=== PATIENT | male | born 1955 | race Asian ===

== ENCOUNTER 2016-04-30 12:50 | Day surgery (SDC) | payer OTHER ==
[~2016-04-30] VITALS: Ht 172.7 cm; Wt 69.8 kg
[2016-04-30 13:35] VITALS: Ht 172.7 cm; Wt 69.8 kg
[2016-04-30 13:46] LABS: POTASSIUM 5.6 mmol/L (3.5-5.1)
[2016-04-30] MEDS ORDERED: AMLO-147 PO (13:53)
[2016-04-30] MEDS ORDERED: [UNRECOGNIZED DRUG - CODE] PO (13:53)
[2016-04-30] MEDS ORDERED: CALC667C PO (13:53)
[2016-04-30] MEDS ORDERED: HYDR-3670 PO (13:53)
[2016-04-30] MEDS ORDERED: LOSA1TAB20 PO (13:53)
[2016-04-30] MEDS ORDERED: METO100T13 PO (13:53)
[2016-04-30] MEDS ORDERED: ATOR20TA38 PO (13:53)
[2016-04-30] MEDS ORDERED: NOVO7030 SC (13:53)
[2016-04-30 14:30] VITALS: BP 181/77; PULSE 50; RESP 20
[2016-04-30] MEDS ORDERED: PROPOFOL 40 ML ONE (14:53)
[2016-04-30] MEDS ORDERED: LIDOCAINE 100 MG SYRINGE ONE (14:53)
[2016-04-30] MEDS ORDERED: FENTAnyl 50 MCG/ML VIAL ONE (14:53)
[2016-04-30 15:12] VITALS: BP 127/65; PULSE 62; RESP 21
[2016-04-30 15:45] VITALS: BP 156/76; PULSE 65; RESP 16
--- NOTE | 2016-04-30 23:13 | GILP ---
DATE OF PROCEDURE: NAME OF PROCEDURE: Colonoscopy to cecum. SURGEON: Melida Sorensen MD HISTORY AND INDICATIONS: The patient here for colorectal cancer screening. PREMEDICATION: Monitored anesthesia care by anesthesiologist. INSTRUMENT USED: Olympus colonoscope. PREPARATION: Adequate. TECHNIQUE: After informed consent, with the patient/relatives understanding the procedure, its indic ations potential risks and complications, including but not limited to: allergic reaction, bleeding, perforation, infection, missed lesions, and, after all pertinent questions were answered to the pat ient's satisfaction, the patient/relatives signed the witnessed informed consent. Following this, premedication was administered slowly IV push by under careful cardiovascular and re spiratory monitoring with pulse oximetry, automatic blood pressure and loss control engineer. Once the sedati ve effect was achieved, the patient was placed in the left lateral decubitus position, digital recta l examination was performed. The colonoscope was then introduced and advanced under visual control throughout all segments of the colon including: the rectum, sigmoid, descending colon, splenic flexu re, transverse colon, hepatic flexure, ascending colon and finally reaching the cecum which was preet rly identified by transillumination, finger indentation and the ileocecal valve. Careful examinatio n of the mucosa of the lower gastrointestinal tract both on insertion as well as withdrawal of the i nstrument disclosed the following findings: Rectal Examination: No evidence of perirectal disease, no masses. Colonic Mucosa: The colon mucosa was entirely unremarkable throughout. The ileocecal valve was jonny monisha identified and appears unremarkable. The instrument was withdrawn reexamining the mucosa in de tail. No additional abnormalities are noted with exception of moderate sized internal hemorrhoids. The instrument was then withdrawn, the patient tolerated the procedure well and was transferred out of the [facility]oscopy Suite awake and in good condition to continue recovery under observation. IMPRESSION: 1. Moderate sized internal hemorrhoids. 2. Otherwise, normal colonoscopy to cecum. PLAN: The patient will be followed up as an outpatient. Further recommendations will depend on the patient's clinical course. Annual Hemoccult stool testing is recommended. Screening colonoscopy i n 10 years is recommended. Dictated By: MELIDA SORENSEN MS/NTS Conf#: [id number] DID#: [id number] CC: MELIDA SORENSEN;*EndCC*
== END 2016-04-30 15:38 | disposition home or self-care (01) ==
LOC: GIL 12:50
PROVIDERS: ATTEND Internal Medicine Gastroenterology
DX: Z12.11 Encounter for screening for malignant neoplasm of colon (principal); K64.8 Other hemorrhoids; E11.9 Type 2 diabetes mellitus without complications; I12.9 Hypertensive chronic kidney disease with stage 1 through stage 4 chronic kidney disease, or unspecified chronic kidney disease; N18.9 Chronic kidney disease, unspecified
CPT/HCPCS: 45378; 82947; 84132; J2001; J3010; Z7610

== ENCOUNTER 2016-08-14 06:37 | Day surgery (SDC) | payer OTHER ==
[~2016-08-14] VITALS: Ht 172.7 cm; Wt 71.0 kg
[~2016-08-14 06:37] MED LIST: AMLO-147 PO; ATOR20TA38 PO; CALC667C PO; DIAZEPAM 5 MG TAB PO SCH; DIPHENHYDRAMINE 50 MG CAP PO SCH; FAMOTIDINE 20 MG TAB PO SCH; HYDR-3670 PO; LOSA1TAB20 PO; METO100T13 PO; NOVO7030 SC; SOD CHLORIDE 0.45% 1,000 ML IV SCH; SODI650T PO
[2016-08-14 08:01] LABS: ADD SCAN DIFF NO
[2016-08-14 08:04] LABS: BASOPHILS % 0.1 % (0.0-2.0); EOSINOPHILS # 0.1 10^3/ul (0.0-0.5); EOSINOPHILS % 1.1 % (0.0-7.0); HEMATOCRIT 29.7 % (42.0-52.0); HEMOGLOBIN 9.8 g/dl (14.0-18.0); LYMPHOCYTES # 1.4 10^3/ul (0.8-2.9); LYMPHOCYTES % 18.4 % (15.0-51.0); MEAN CORPUSCULAR HEMOGLOBIN 29.7 pg (29.0-33.0); MEAN PLATELET VOLUME 8.9 fl (7.4-10.4); MONOCYTE # 0.5 10^3/ul (0.3-0.9); MONOCYTES % 7.2 % (0.0-11.0); NEUTROPHIL # 5.4 10^3/ul (1.6-7.5); NEUTROPHILS % 72.8 % (39.0-77.0); PLATELET COUNT 232 10^3/UL (140-415); RED CELL DISTRIBUTION WIDTH 13.7 % (11.5-14.5); WHITE BLOOD COUNT 7.5 10^3/ul (4.8-10.8)
[2016-08-14 08:11] VITALS: BP 138/63; PULSE 48; RESP 18; Ht 172.7 cm; Wt 71.0 kg
[2016-08-14 08:21] LABS: INR 0.85; PROTIME 11.6 Sec (12.2-14.2); PT RATIO 0.9
[2016-08-14 08:22] LABS: PARTIAL THROMBOPLASTIN TIME 27.6 Sec (25.0-35.0)
[2016-08-14] MEDS ORDERED: BUME2TAB18 PO (08:24)
[2016-08-14 08:29] LABS: CREATININE 4.43 mg/dl (0.61-1.24); POTASSIUM 5.6 mmol/L (3.5-5.1)
[2016-08-14] MEDS ORDERED: LISI2.5T59 PO (08:29)
[2016-08-14] MEDS ORDERED: AMLO-147 PO (08:29)
[2016-08-14] MEDS ORDERED: SODI325T PO (08:30)
[2016-08-14] MEDS ORDERED: FLUO20CA22 PO (08:31)
[2016-08-14] MEDS ORDERED: ISOS60TA PO (08:32)
[2016-08-14] MEDS ORDERED: NIT4 SL (08:32)
[2016-08-14] MEDS ORDERED: METO50TA16 PO (08:34)
[2016-08-14] MEDS ORDERED: LIPA1CAP45 PO (08:37)
[2016-08-14] MEDS ORDERED: NOVO7030 SC (08:37)
[2016-08-14 08:56] LABS: CHOL/HDL RATIO 4.6 RATIO
--- NOTE | 2016-08-14 09:33 | RADRPT ---
PROCEDURE: XR Chest. CLINICAL INDICATION: Chest pain. Preoperative. TECHNIQUE: Single frontal view. COMPARISON: None. FINDINGS: The lungs are clear. The heart is enlarged. There is calcification in the aorta consistent with atherosclerosis. There is no pleural effusion. There is no pneumothorax. IMPRESSION: 1. Normal chest radiograph. RPTAT: QQ .Ramon Ambriz MD, MD Date Time Electronically viewed and signed by .Ramon Ambriz MD, MD on 08/14/2016 09:33 .R/
--- NOTE | 2016-08-15 16:39 | RADRPT ---
Vent Rate: 46 bpm RR Interval: 0 msec OR Interval: 172 msec QRS Duration: 104 msec QT Interval: 504 msec QTC Interval: 441 msec P-R-T [place]: 58 - 0 - 86 degrees Marked sinus bradycardia Abnormal ECG Electronically Signed By: Janes Fay [id number]
== END 2016-08-14 09:06 | disposition home or self-care (01) ==
LOC: SDS 06:37
PROVIDERS: ATTEND Internal Medicine
DX: I25.10 Atherosclerotic heart disease of native coronary artery without angina pectoris (principal); Z53.9 Procedure and treatment not carried out, unspecified reason
CPT/HCPCS: 71010; 80048; 80061; 82962; 85025; 85610; 85730; 93005